=== PATIENT | male | born 1950 | race Caucasian/White ===

== ENCOUNTER 2018-08-04 19:24 | Emergency (ER) | payer OTHER, MEDICARE ==
[~2018-08-04] VITALS: Ht 180.3 cm; Wt 90.3 kg
--- NOTE | ~2018-08-04 | EKG ---
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
[2018-08-04] MEDS ORDERED: ATORVASTATIN CA40 MG PO (19:58)
[2018-08-04] MEDS ORDERED: PROTONIX40 M1 PO (19:59)
[2018-08-04] MEDS ORDERED: LIALDA1.2 GM PO (19:59)
[2018-08-04] MEDS ORDERED: COUMADIN 3 MG TA3 M1 (20:01)
[2018-08-04] MEDS ORDERED: [UNRECOGNIZED DRUG - OTHER] PO (20:02)
[2018-08-04 20:07] LABS: ABSOLUTE NEUTROPHILS 3.9 thou/uL (1.4-8.2); BASOPHILS 0.6 % (0.0-2.0); CALCIUM 9.2 mg/dL (8.5-10.1); CREATININE 1.3 mg/dL (0.7-1.3); EOSINOPHILS 2.1 % (0.0-3.0); HEMATOCRIT 42.2 % (42.0-52.0); LYMPHOCYTES 39.2 % (24.0-44.0); MCH 33.4 pg (26.0-34.0); MCHC 35.6 g/dL (28.0-37.0); MCV 93.8 fL (80.0-100.0); PLATELET COUNT 229 thou/uL (150-400); POLYS 49.1 % (36.0-66.0); POTASSIUM 3.8 mmol/L (3.5-5.1); RBC 4.49 mil/uL (4.50-6.00); RDW 12.8 % (10.5-14.5); WBC 7.9 thou/uL (4.0-11.0)
[2018-08-04] MEDS ORDERED: ASPIR 8181 MG PO (20:14)
[2018-08-04] MEDS ORDERED: CYMBALTA30 MG PO (20:14)
[2018-08-04 20:15] LABS: MAGNESIUM 1.7 mg/dL (1.8-2.4); TROPONIN-I 0.06 ng/mL (<0.06)
[2018-08-04] MEDS ORDERED: UNKNOWN BP PILL (20:15)
[2018-08-04] MEDS ORDERED: COUMADIN 1MG TAB1 M1 PO (20:16)
[2018-08-04 20:25] LABS: APTT 39.4 Seconds (24.5-32.8); D-DIMER 0.55 ug/mLFEU (0.19-0.50); INR 2.3; PROTIME 24.2 Seconds (9.3-11.4)
[2018-08-04] MEDS ORDERED: LISINOPRIL10 MG PO (21:08)
[2018-08-04] MEDS ORDERED: TRAMADOL 50 MG50 MG PO (22:04)
== END 2018-08-04 22:25 | disposition home or self-care (01) ==
LOC: ER 19:24
PROVIDERS: Emergency Medicine
DX: S16.1XXA Strain of muscle, fascia and tendon at neck level, initial encounter (principal); R42 Dizziness and giddiness; R20.2 Paresthesia of skin; X58.XXXA Exposure to other specified factors, initial encounter; Y92.89 Other specified places as the place of occurrence of the external cause; Y93.89 Activity, other specified; Y99.8 Other external cause status